=== PATIENT | female | born 1990 | race African-American/Black ===

== ENCOUNTER 2019-02-23 15:14 | Emergency (ER) | payer MEDICAID ==
[~2019-02-23] VITALS: Ht 172.7 cm; Wt 125.0 kg
[2019-02-23 18:56] VITALS: BP 128/72
== END 2019-02-23 19:01 | disposition home or self-care (01) ==
LOC: ER 15:14
DX: S09.8XXA Other specified injuries of head, initial encounter (principal); W01.198A Fall on same level from slipping, tripping and stumbling with subsequent striking against other object, initial encounter; Y93.41 Activity, dancing; Y92.22 Religious institution as the place of occurrence of the external cause
CPT/HCPCS: 99282

== ENCOUNTER 2019-08-13 23:03 | Emergency (ER) | payer MEDICAID ==
[~2019-08-13] VITALS: Ht 172.7 cm; Wt 120.0 kg
[2019-08-14] MEDS ORDERED: IPRATROPIUM/ALBUTEROL 0.5-3(2.5)MG/3ML NEB HHN ONE (01:30)
[2019-08-14] MEDS ORDERED: DEXAMETHASONE 4MG TABLET PO ONE (01:30)
[2019-08-14] MEDS ORDERED: IPRATROPIUM/ALBUTEROL 0.5-3(2.5)MG/3ML NEB ONE (01:49)
[2019-08-14 02:41] VITALS: BP 132/80
== END 2019-08-14 02:42 | disposition home or self-care (01) ==
LOC: ER 23:08
DX: J40 Bronchitis, not specified as acute or chronic (principal)
CPT/HCPCS: 94640; 99283; J7620; J8540; Z7610

== ENCOUNTER 2019-11-21 20:10 | Emergency (ER) | payer MEDICAID ==
[~2019-11-21] VITALS: Ht 177.8 cm; Wt 96.0 kg
[2019-11-21 21:23] LABS: BASOPHILS % 0.8 % (0.0-2.0); CHLORIDE 107 mEq/L (98-107); EOSINOPHILS % 1.1 % (0.0-5.0); HEMATOCRIT. 41.4 % (36.0-48.0); HEMOGLOBIN. 12.7 g/dL (12.0-16.0); LYMPHOCYTES % 21.9 % (20.0-50.0); MEAN CORPUSCULAR HEMOGLOBIN 22.9 pg (28.0-32.0); MEAN CORPUSCULAR VOLUME 74.5 fL (81.0-99.0); MEAN PLATELET VOLUME 9.4 fl (7.4-10.4); MONOCYTES % 5.4 % (2.0-8.0); NEUTROPHILS % 70.8 % (40.0-76.0); PLATELET 266 x1000/uL (130-400); RED BLOOD CELL COUNT 5.56 mill/uL (4.2-5.4); RED CELL DISTRIBUTION WIDTH 14.1 % (11.6-14.6)
[2019-11-21 21:29] LABS: ETHANOL BLOOD < 10 mg/dL
[2019-11-22] MEDS ORDERED: LORAZEPAM 1MG TABLET PO ONE (00:15)
[2019-11-22] MEDS: ARIPIPRAZOLE 5MG TABLET PO SCH ×2 (01:43→10:00)
[2019-11-22 03:30] LABS: *AMPHETAMINES SCREEN URINE NEGATIVE (NEGATIVE); *BARBITURATES SCREEN URINE NEGATIVE (NEGATIVE); *BENZODIAZEPINES SCREEN URINE NEGATIVE (NEGATIVE); CANNABINOID URINE SCREEN NEGATIVE (NEGATIVE); METHADONE URINE SCREEN NEGATIVE (NEGATIVE)
[2019-11-22 03:31] LABS: PHENCYCLIDINE URINE SCREEN NEGATIVE (NEGATIVE)
[2019-11-22 03:32] LABS: *COCAINE SCREEN URINE NEGATIVE (NEGATIVE)
[2019-11-22 03:33] LABS: CLARITY URINE CLEAR (CLEAR); COLOR URINE YELLOW (YELLOW)
[2019-11-22 03:34] LABS: KETONES URINE NEGATIVE (NEGATIVE); LEUKOCYTE ESTERASE URINE NEGATIVE (NEGATIVE); NITRITE URINE NEGATIVE (NEGATIVE); OCCULT BLOOD URINE NEGATIVE (NEGATIVE); PROTEIN URINE NEGATIVE (NEGATIVE); SPECIFIC GRAVITY URINE 1.029 (1.005-1.030); UROBILINOGEN URINE 0.2 E.U./dL (0.2-1.0)
[2019-11-22 15:38] VITALS: BP 134/91
[2019-11-24 08:58] LABS: OPIATES URINE SCREEN NEGATIVE (NEGATIVE)
== END 2019-11-22 16:24 | disposition home or self-care (01) ==
LOC: ER 20:10
DX: F32.9 Major depressive disorder, single episode, unspecified (principal); R45.851 Suicidal ideations; D72.829 Elevated white blood cell count, unspecified; J45.909 Unspecified asthma, uncomplicated; Z90.49 Acquired absence of other specified parts of digestive tract
CPT/HCPCS: 36415; 80053; 80305; 80320; 81003; 81025; 85025; 99285; G0480

== ENCOUNTER 2020-12-23 16:33 | Emergency (ER) | payer MEDICAID, OTHER ==
[~2020-12-23] VITALS: Ht 172.7 cm; Wt 130.0 kg
[2020-12-23] MEDS ORDERED: SODIUM CHLORIDE 0.9% 1,000 ML IV ONE (17:15)
[2020-12-23 17:56] LABS: BASOPHILS % 1.6 % (0.0-2.0); EOSINOPHILS % 0.5 % (0.0-5.0); HEMOGLOBIN. 12.7 g/dL (12.0-16.0); LYMPHOCYTES % 22.5 % (20.0-50.0); MEAN CORPUSCULAR HEMOGLOBIN 23.1 pg (28.0-32.0); MEAN CORPUSCULAR VOLUME 72.9 fL (81.0-99.0); MONOCYTES % 9.4 % (2.0-8.0); PLATELET 269 x1000/uL (130-400); RED BLOOD CELL COUNT 5.49 mill/uL (4.2-5.4)
[2020-12-23 18:01] LABS: CHLORIDE 108 mEq/L (98-107)
[2020-12-23 18:04] LABS: PROTHROMBIN TIME 10.7 sec (9.6-11.0)
[2020-12-23 18:10] LABS: HCG SCREEN NEGATIVE
[2020-12-23 18:59] LABS: CLARITY URINE TURBID (CLEAR); COLOR URINE DARK YELLOW (YELLOW); KETONES URINE TRACE (NEGATIVE); LEUKOCYTE ESTERASE URINE NEGATIVE (NEGATIVE); NITRITE URINE NEGATIVE (NEGATIVE); OCCULT BLOOD URINE NEGATIVE (NEGATIVE); PROTEIN URINE 2+ (NEGATIVE); SPECIFIC GRAVITY URINE 1.042 (1.005-1.030)
[2020-12-23] MEDS ORDERED: ONDANSETRON HCL 4MG/2ML INJ IV ONE (20:00)
[2020-12-23] MEDS ORDERED: MORPHINE SULFATE 4 MG/ML CPJ (NOT FOR IM USE) IV ONE (20:00)
[2020-12-23] MEDS ORDERED: CEFP200T14 MT (22:40)
[2020-12-23 22:50] VITALS: BP 130/83
[2020-12-23] MEDS ORDERED: IOHEXOL-300 100 ML BOTTLE ONE (23:18)
== END 2020-12-23 23:05 | disposition home or self-care (01) ==
LOC: ER 16:33
DX: R10.9 Unspecified abdominal pain (principal); R11.2 Nausea with vomiting, unspecified; Z90.49 Acquired absence of other specified parts of digestive tract
CPT/HCPCS: 36415; 74177; 80053; 81003; 81025; 83690; 84703; 85025; 85610; 87086; 87491; 87591; 96361; 96374; 96375; 99285; J2270; J2405; J7030; Q9967

== ENCOUNTER 2021-12-12 21:38 | Emergency (ER) | payer MEDICAID, OTHER ==
[~2021-12-12] VITALS: Ht 175.3 cm; Wt 127.0 kg
[~2021-12-12 21:38] MED LIST: CEFP200T14 MT
[2021-12-12] MEDS ORDERED: DIPHENHYDRAMINE 50MG CAPSULE PO ONE (23:00)
[2021-12-13 01:34] LABS: BASOPHILS % 0.7 % (0.0-2.0); EOSINOPHILS % 1.6 % (0.0-5.0); HEMOGLOBIN. 11.9 g/dL (12.0-16.0); LYMPHOCYTES % 29.2 % (20.0-50.0); MEAN CORPUSCULAR HEMOGLOBIN 22.5 pg (28.0-32.0); MEAN PLATELET VOLUME 9.1 fl (7.4-10.4); MONOCYTES % 6.5 % (2.0-8.0); PLATELET 251 x1000/uL (130-400); RED BLOOD CELL COUNT 5.28 mill/uL (4.2-5.4); RED CELL DISTRIBUTION WIDTH 14.3 % (11.6-14.6)
[2021-12-13 01:40] LABS: CHLORIDE 108 mEq/L (98-107)
[2021-12-13 01:45] LABS: C REACTIVE PROTEIN QUANT 3.6 mg/L (0.0-3.0); PARTIAL THROMBOPLASTIN TIME 27.3 sec (23.4-31.0); PROTHROMBIN TIME 10.5 sec (9.6-11.0)
[2021-12-13] MEDS ORDERED: HYDROCORTISONE 1% CREAM 30GM TOP ONE (01:45)
[2021-12-13] MEDS ORDERED: ONDANSETRON 4MG ODT PO ONE (02:00)
[2021-12-13 02:47] VITALS: BP 134/79
== END 2021-12-13 02:48 | disposition home or self-care (01) ==
LOC: ER 21:38
DX: R21 Rash and other nonspecific skin eruption (principal); L51.1 Stevens-Johnson syndrome; F31.9 Bipolar disorder, unspecified; Z90.49 Acquired absence of other specified parts of digestive tract
CPT/HCPCS: 36415; 80053; 85025; 85610; 85651; 85730; 86140; 99283; Q0162; Q0163